=== PATIENT | male | born 1995 ===

== ENCOUNTER 2022-03-22 06:56 | Emergency (ER) | payer SELFPAY ==
[2022-03-22 08:50] VITALS: BP 132/90
== END 2022-03-22 22:29 | disposition left against medical advice (07) ==
LOC: ED 06:56
DX: R51.9 Headache, unspecified (principal); Z53.21 Procedure and treatment not carried out due to patient leaving prior to being seen by health care provider

== ENCOUNTER 2022-03-23 10:49 | Emergency (ER) | payer SELFPAY ==
--- NOTE | 2022-03-23 16:39 | Emergency Department Report ---
ED General Adult HPI - General Chief complaint: Abdominal Pain Stated complaint: DONT FEEL WELL Time Seen by Provider: 03/23/22 16:06 Source: patient Mode of arrival: Ambulatory Limitations: No Limitations - History of Present Illness Initial comments: Beny is a 26-year-old male who presents to the emergency department complaining of issues with sleeping and having a lack of food. He also has a myriad of complaints around his mood ultimately reporting auditory hallucinations telling him so many things he cannot explain as well as tangential thoughts however no suicide or homicide ideation. Reports no fevers, chills, sweats. No chest pain or palpitations no nausea or vomiting. Was recently admitted into [facility] at which point in time he states that his symptoms were all resolved and shortly after his discharge they began to reemerge he is not admitted medication noncompliance nor has he confirmed that he takes his medications as recommended Improves with: none Worsens with: none Associated Symptoms: denies other symptoms - Related Data Allergies Allergy/AdvReac Type Severity Reaction Status Date / Time No Known Allergies Allergy Verified 03/22/22 08:47 ED Review of Systems ROS: Stated complaint: DONT FEEL WELL Other details as noted in HPI Comment: All other systems reviewed and negative ED Physical Exam - General Limitations: No Limitations General appearance: alert, in no apparent distress - Head Head exam: Present: atraumatic, normocephalic - Eye Eye exam: Present: normal appearance - ENT ENT exam: Present: mucous membranes moist - Neck Neck exam: Present: normal inspection - Respiratory Respiratory exam: Present: normal lung sounds bilaterally. Absent: respiratory distress - Cardiovascular Cardiovascular Exam: Present: regular rate, normal rhythm. Absent: systolic murmur, diastolic murmur, rubs, gallop - GI/Abdominal GI/Abdominal exam: Present: soft, normal bowel sounds - Rectal Rectal exam: Present: deferred - Extremities Exam Extremities exam: Present: normal inspection - Back Exam Back exam: Present: normal inspection - Neurological Exam Neurological exam: Present: alert, oriented X3 - Psychiatric Psychiatric exam: Present: normal affect, normal mood - Expanded Psychiatric Exam Expanded Focused psych exam: Present: flight of ideas, loose associations - Skin Skin exam: Present: warm, dry, intact, normal color. Absent: rash ED Course Vital Signs 03/23/22 11:35 Temperature 98.3 F Pulse Rate 82 Respiratory 18 Rate Blood Pressure 127/78 O2 Sat by Pulse 98 Oximetry Critical care attestation.: If time is entered above; I have spent that time in minutes in the direct care of this critically ill patient, excluding procedure time. ED Disposition Condition: Stable
[2022-03-23 16:51] LABS: Hematocrit 45.5 % (35.5-45.6); Hemoglobin 14.5 gm/dl (11.8-15.2); Mean Corpuscular HGB Conc 32 % (32-34); Mean Corpuscular Volume 86 fl (84-94); Red Blood Count 5.29 M/mm3 (3.65-5.03); Red Cell Distribution Width 14.7 % (13.2-15.2)
[2022-03-23 17:08] LABS: BUN/Creatinine Ratio 10; Blood Urea Nitrogen 9 mg/dL (9-20); Calcium 9.9 mg/dL (8.4-10.2); Hemolysis Index 7
[2022-03-23 18:44] LABS: Amphetamine Screen,Urine Negative; Benzodiazepines Screen,Urine Negative; Cocaine Screen,Urine Negative; Methadone Screen,Urine Negative; Opiate Screen,Urine Negative
[2022-03-23 19:03] LABS: Bilirubin,Urine NEG (Negative); Blood,Urine SM (Negative); Color,Urine Yellow (Yellow)
[2022-03-23 19:12] LABS: Amorphous Crystals,Urine 3+; Bacteria,Urine 1+ /HPF (Negative); Calcium Oxalate Crystals,Urine 3+; Mucus,Urine 1+ /HPF
[2022-03-23 19:21] LABS: Platelet Count 213 K/mm3 (140-440)
[2022-03-23 19:38] LABS: Protein,Urine <15 mg/dL mg/dL (Negative); WBC,Urine < 1.0 /HPF (0.0-6.0)
[2022-03-23 19:40] LABS: Platelet Estimate Consistent w Auto; RBC Morphology Normal; Total Cells Counted 100
[2022-03-23 19:48] LABS: Cannabinoid Screen,Urine Positive
[2022-03-24 09:25] VITALS: BP 127/76
--- NOTE | 2022-03-24 11:26 | Event Note ---
Date: 03/24/22 I assessed the patient he is being cleared by psych he has no suicidal or homicidal ideation
== END 2022-03-24 11:49 | disposition home or self-care (01) ==
LOC: ED 10:49
DX: R44.0 Auditory hallucinations (principal); Z59.48 Other specified lack of adequate food
CPT/HCPCS: 36415; 80048; 80307; 80320; 81001; 85007; 85025; 99284; G0480